=== PATIENT | female | born 1985 | race Caucasian/White ===

== ENCOUNTER 2018-03-12 21:15 | Emergency (ER) | payer OTHER ==
[~2018-03-12] VITALS: Ht 175.3 cm; Wt 75.8 kg
[~2018-03-12 21:15] MED LIST: ALBU4 PO; ALBU90OI INH; AZIT250 PO; DIPATR PO; ESOM20; Flagyl500 MG PO; Guaifenesin Dm118 ML PO; MECL25 PO; MONT10T PO; Monodox100 MG PO; NAPR500 PO; NAPR550 PO; Norco 5-325 Ta1 EACH PO; OMEP20ER PO; Percocet 5-3251 EACH PO; Prednisone20 MG PO; SPACE CHAMBER1 EACH MC; Zithromax250 MG PO
[2018-03-12 22:38] LABS: BASOPHILS ABSOLUTE AUTO 0.04 K/mm3 (0.00-0.23); BASOPHILS PERCENT AUTO 1 % (0-2); EOSINOPHILS ABSOLUTE AUTO 0.15 K/mm3 (0.00-0.68); EOSINOPHILS PERCENT AUTO 2 % (0-6); Hematocrit 37.2 % (33.0-51.0); Hemoglobin 12.6 g/dL (11.5-16.0); IMMATURE GRAN ABSOLUTE AUTO 0.02 K/mm3 (0.00-0.10); IMMATURE GRAN PERCENT AUTO 0 % (0-1); LYMPHOCYTES ABSOLUTE AUTO 1.68 K/mm3 (0.84-5.20); LYMPHOCYTES PERCENT AUTO 21 % (21-46); MONOCYTES ABSOLUTE AUTO 0.49 K/mm3 (0.16-1.47); MONOCYTES PERCENT AUTO 6 % (4-13); Mean Corpuscular HGB 29.9 pg (26.0-34.0); Mean Corpuscular HGB Conc 33.9 g/dL (31.5-36.5); Mean Corpuscular Volume 88 fL (80-100); Mean Platelet Volume 10.5 fL (9.1-12.4); NEUTROPHILS PERCENT AUTO 71 % (41-73); Platelet Count 177 K/mm3 (150-400); RDW Coefficient Variation 12.6 % (11.7-14.2); RDW Standard Deviation 40.8 fL (35.1-46.3); Red Blood Cell Count 4.21 M/mm3 (3.80-5.20); White Blood Cell Count 8.18 K/mm3 (4.00-11.30)
[2018-03-12 22:52] LABS: International Normalized Ratio 1.06
[2018-03-12 22:55] LABS: Alanine Aminotransfer (ALT/SGP 18 U/L (12-78); Albumin, Blood 3.1 g/dL (3.4-5.0); Alk Phos 72 U/L (50-136); Anion Gap 8 mmol/L (6-16); Aspartate Aminotrans (AST/SGOT 10 U/L (12-37); Bilirubin, Total 0.2 mg/dL (0.1-1.0); Blood Urea Nitrogen 8 mg/dL (8-24); Bun/Creatinine Ratio 12.1 (12.0-20.0); CO2, Blood 28 mmol/L (21-32); Calcium, Blood 8.2 mg/dL (8.5-10.1); Chloride, Blood 109 mmol/L (98-108); Creatinine, Blood 0.66 mg/dL (0.40-1.00); Globulin, Blood 3.1 g/dL (2.2-4.0); Glomerular Filtration Rate >60 (60-); Glucose, Blood 102 mg/dL (70-99); Sodium, Blood 145 mmol/L (136-145); Total Protein, Blood 6.2 g/dL (6.4-8.2)
== END 2018-03-13 00:01 | disposition home or self-care (01) ==
LOC: ER 21:15
PROVIDERS: Emergency Medicine
DX: M66.0 Rupture of popliteal cyst (principal); R60.0 Localized edema; E87.6 Hypokalemia; Z88.0 Allergy status to penicillin; Z88.2 Allergy status to sulfonamides; Z91.048 Other nonmedicinal substance allergy status; Z88.5 Allergy status to narcotic agent; Z91.040 Latex allergy status; J44.9 Chronic obstructive pulmonary disease, unspecified; F17.210 Nicotine dependence, cigarettes, uncomplicated
CPT/HCPCS: 51798; 80053; 83880; 85025; 85610; 93970; 96372; 99284; J1885

== ENCOUNTER 2018-06-18 21:54 | Emergency (ER) | payer MEDICAID ==
[~2018-06-18] VITALS: Ht 175.3 cm; Wt 77.1 kg
[2018-06-19] MEDS ORDERED: ERYT1OIN LEFTEYE (00:58)
== END 2018-06-19 01:10 | disposition home or self-care (01) ==
LOC: ER 21:54
DX: S00.12XA Contusion of left eyelid and periocular area, initial encounter (principal); H10.9 Unspecified conjunctivitis; W01.198A Fall on same level from slipping, tripping and stumbling with subsequent striking against other object, initial encounter; Z88.0 Allergy status to penicillin; Z88.2 Allergy status to sulfonamides; Z91.048 Other nonmedicinal substance allergy status; Z91.040 Latex allergy status; Z88.5 Allergy status to narcotic agent; J44.9 Chronic obstructive pulmonary disease, unspecified; F17.210 Nicotine dependence, cigarettes, uncomplicated
CPT/HCPCS: 70486; 99283-25

== ENCOUNTER 2018-11-08 23:47 | Emergency (ER) | payer OTHER ==
[~2018-11-08] VITALS: Ht 175.3 cm; Wt 77.1 kg
[~2018-11-08 23:47] MED LIST changes: +Cleocin HCl300 MG PO; +ERYT1OIN LEFTEYE; +IBUP600 PO; +Prednisone50 MG PO
[2018-11-09] MEDS ORDERED: ALBU90OI INH (00:40)
[2018-11-09] MEDS ORDERED: BENZ100A PO (00:40)
[2018-11-30] MEDS ORDERED: IBUP400 PO (23:52)
== END 2018-11-09 02:07 | disposition home or self-care (01) ==
LOC: ER 23:47
DX: J06.9 Acute upper respiratory infection, unspecified (principal); Z88.0 Allergy status to penicillin; Z88.2 Allergy status to sulfonamides; Z91.048 Other nonmedicinal substance allergy status; Z91.040 Latex allergy status; Z88.5 Allergy status to narcotic agent; J44.9 Chronic obstructive pulmonary disease, unspecified; F17.210 Nicotine dependence, cigarettes, uncomplicated
CPT/HCPCS: 71046; 99283-25

== ENCOUNTER 2018-11-19 18:00 | Emergency (ER) | payer OTHER ==
[~2018-11-19] VITALS: Ht 165.1 cm; Wt 74.8 kg
[~2018-11-19 18:00] MED LIST changes: +BENZ100A PO
[2018-11-30] MEDS ORDERED: IBUP400 PO (23:52)
== END 2018-11-19 21:00 | disposition home or self-care (01) ==
LOC: ER 18:00
DX: J40 Bronchitis, not specified as acute or chronic (principal); Z88.0 Allergy status to penicillin; Z88.2 Allergy status to sulfonamides; Z91.040 Latex allergy status; Z88.5 Allergy status to narcotic agent; F17.210 Nicotine dependence, cigarettes, uncomplicated
CPT/HCPCS: 71046; 94640; 99284-25

== ENCOUNTER 2018-11-24 17:57 | Emergency (ER) | payer OTHER ==
[~2018-11-24] VITALS: Ht 172.7 cm; Wt 59.0 kg
[2018-11-24] MEDS ORDERED: Norco 5-325 Ta1 EACH PO (19:46)
[2018-11-30] MEDS ORDERED: IBUP400 PO (23:52)
== END 2018-11-24 20:10 | disposition home or self-care (01) ==
LOC: ER 17:57
DX: M25.531 Pain in right wrist (principal); Z88.0 Allergy status to penicillin; Z88.2 Allergy status to sulfonamides; Z91.048 Other nonmedicinal substance allergy status; Z91.040 Latex allergy status; Z88.5 Allergy status to narcotic agent; Z79.899 Other long term (current) drug therapy; F17.210 Nicotine dependence, cigarettes, uncomplicated; J44.9 Chronic obstructive pulmonary disease, unspecified
CPT/HCPCS: 29125; 73110; 99283-25

== ENCOUNTER 2018-11-26 22:24 | Emergency (ER) | payer OTHER ==
[~2018-11-26] VITALS: Ht 175.3 cm; Wt 63.5 kg
[2018-11-26] MEDS ORDERED: Permethrin60 GM TOP (23:08)
[2018-11-30] MEDS ORDERED: IBUP400 PO (23:52)
== END 2018-11-26 23:15 | disposition home or self-care (01) ==
LOC: ER 22:24
DX: B86 Scabies (principal); B88.8 Other specified infestations; Z88.0 Allergy status to penicillin; Z88.2 Allergy status to sulfonamides; Z88.5 Allergy status to narcotic agent; Z88.8 Allergy status to other drugs, medicaments and biological substances; Z79.899 Other long term (current) drug therapy; J44.9 Chronic obstructive pulmonary disease, unspecified; F17.210 Nicotine dependence, cigarettes, uncomplicated
CPT/HCPCS: 99282

== ENCOUNTER 2018-12-10 01:07 | Emergency (ER) | payer OTHER ==
[~2018-12-10] VITALS: Ht 175.3 cm; Wt 81.2 kg
[~2018-12-10 01:07] MED LIST changes: +IBUP400 PO; +Permethrin60 GM TOP
[2018-12-10] MEDS ORDERED: CEPH500 PO (01:46)
[2018-12-10] MEDS ORDERED: Vibramycin100 MG PO (01:46)
[2018-12-10] MEDS ORDERED: IBUP800 PO (01:46)
== END 2018-12-10 02:20 | disposition home or self-care (01) ==
LOC: ER 01:07
DX: L03.312 Cellulitis of back [any part except buttock and flank] (principal); Z88.0 Allergy status to penicillin; Z88.2 Allergy status to sulfonamides; Z91.048 Other nonmedicinal substance allergy status; Z91.040 Latex allergy status; Z88.5 Allergy status to narcotic agent; F17.200 Nicotine dependence, unspecified, uncomplicated
CPT/HCPCS: 99282

== ENCOUNTER 2019-07-23 17:13 | Emergency (ER) | payer OTHER ==
[~2019-07-23] VITALS: Ht 175.3 cm; Wt 68.0 kg
[~2019-07-23 17:13] MED LIST changes: +CEPH500 PO; +IBUP800 PO; +Vibramycin100 MG PO
[2019-07-23] MEDS ORDERED: Zithromax250 MG PO (18:22)
[2019-07-23] MEDS ORDERED: Ventolin/Prove6.7 GM INH (18:22)
[2019-07-23] MEDS ORDERED: METPRE4DP PO (18:22)
== END 2019-07-23 18:43 | disposition home or self-care (01) ==
LOC: ER 17:13
DX: J44.1 Chronic obstructive pulmonary disease with (acute) exacerbation (principal); Z88.0 Allergy status to penicillin; Z88.2 Allergy status to sulfonamides; Z91.040 Latex allergy status; Z91.041 Radiographic dye allergy status; Z88.5 Allergy status to narcotic agent; Z79.899 Other long term (current) drug therapy; F17.210 Nicotine dependence, cigarettes, uncomplicated
CPT/HCPCS: 94640; 96374; 96375; 99283-25; J2405; J2930